=== PATIENT | female | born 1940 | race Caucasian/White ===

== ENCOUNTER 2024-04-03 09:51 | Observation (INO) ==
--- NOTE | 2024-04-03 10:51 | XRay Report ---
XR chest 1V portable CLINICAL HISTORY: weakness TECHNIQUE: Single frontal radiograph of the chest was obtained. Comparison: None available at the time of this dictation. FINDINGS: No lines and tubes are seen. The cardiomediastinal silhouette is normal. Suggestion of interstitial t hickening. No evidence of pleural effusion or pneumothorax. IMPRESSION: No acute chest disease. ACT 112: Negative or not required by law. Electronically signed by: Carter No M.D. 04/03/2024 10:50 AM
[2024-04-03 11:01] LABS: Basophils # (auto) 0.04 K/uL (0.00-0.20); Basophils % (auto) 0.7 %; Eosinophils # (auto) 0.07 K/uL (0.00-0.50); Eosinophils % (auto) 1.2 %; Hematocrit (blood only) 40.4 % (37.0-47.0); Immature Granulocytes # (auto) 0.02 K/uL (0.01-0.20); Immature Granulocytes % (auto) 0.4 %; Lymphocytes # (auto) 0.93 K/uL (1.20-3.40); Lymphocytes % (auto) 16.3 %; Mean Corpuscular Hemoglobin 31.8 pg (25.0-34.0); Mean Corpuscular Hgb Conc 32.2 g/dL (32.0-36.0); Mean Corpuscular Volume 98.8 fL (80.0-100.0); Mean Platelet Volume 11.5 fL (9.4-12.4); Monocytes # (auto) 0.49 K/uL (0.11-0.59); Monocytes % (auto) 8.6 %; Neutrophils # (auto) 4.15 K/uL (1.40-6.50); Neutrophils % (auto) 72.8 %; Platelet Count 195 K/uL (130-400); RDW Coefficient of Variation 13.3 % (11.5-14.5); RDW Standard Deviation 48.5 fL (36.4-46.3); Red Blood Count 4.09 M/uL (4.20-5.40)
[2024-04-03 11:03] LABS: Albumin Level 3.7 gm/dl (3.4-5.0); BUN Creatinine Ratio 28.1 (10-20); Bilirubin,Total 0.8 mg/dl (0.2-1.0); Calcium 9.8 mg/dl (8.6-10.3); Creatinine Clr Calc Pharmacy 25.7 ml/min; Globulin 3.8 gm/dl (2.5-4.0); Magnesium 1.9 mg/dl (1.7-2.4); Potassium 3.9 mmol/L (3.5-5.1); Total Protein 7.5 gm/dl (6.0-8.3)
[2024-04-03 11:09] LABS: Troponin I High Sensitivity 12.5 pg/ml (0-14)
[2024-04-03 11:18] LABS: Thyroid Stimulating Hormone 0.113 uIu/ml (0.300-4.500)
--- NOTE | 2024-04-03 11:48 | Emergency Department Note ---
Impression & Plan Pulmonary embolism, Chest pain, Lightheadedness, Orthostasis ED Provider Note NAME: KILO FIELDS AGE: 83 SEX: Female INFORMANT: Patient and daughter ED PROVIDER(S): Rudolph Neri MD CHIEF COMPLAINT: Weakness and chest pain PLAN: Disposition: Admitted Outpatient prescription management: none Referral: None MEDICAL DECISION MAKING: Patient presented because of an episode of chest pain. She was also found to be orthostatic. ECG did not show any acute ischemia. Patient CBC and chemistry panel was unremarkable. Cardiac troponin was negative. Patient had a drop to 90 systolic with orthostatic testing. Patient underwent CT imaging who was noted to have pulmonary emboli. Heparinization was ordered. Discussed this with patient and daughter. She will need further management in the hospital. Consultation was made with Dr. Melecio Ortiz of the [facility] service. Patient was evaluated in the ER for further management. Care/management discussed with: manager graphic Level of care consideration(s): After review of the information above and other included data, I feel the patient requires escalation of care to admission Triage Nursing notes: reviewed and agree them. Vital Signs: reviewed and remarkable for orthostasis Additional History obtained from: Patient's daughter Chronic Medical/Social Conditions affecting care: Hypertension Prior/ Outside/ External records reviewed: none Differential Diagnosis: Infection, dehydration, metabolic abnormality, hypo/hyperglycemia, electrolyte disturbance, anemia, hypoxia, cardiac sources, intracerebral event, toxicologic, neurologic, as well as other pathologies. Diagnostics, independently interpreted by me: ECG: Twelve-lead ECG reveals sinus rhythm with PACs and left axis deviation at [address] elevation or depression. No T WI. Possible anterior infarct. Cardiac Monitoring: Cardiac monitoring ordered by me: The patient was placed on continuous cardiac monitoring and observed. It revealed a sinus rhythm at 97 beats per minute without ectopy or evidence of dysrhythmia. Medical decision rules: none Imaging studies: Chest x-ray. Findings: A chest x-ray was performed and revealed no pneumothorax, effusion, infiltrate, pulmonary edema, free air under the diaphragm, or wide mediastinum. Impression: No acute disease. HPI: 83 year old Female arrives for evaluation of chest pain weakness. This started yesterday. Patient notes her current pain is 0. She notes about 5 to 10 minutes of substernal chest pain that occurred at rest yesterday. She noted feeling weak. That has progressed today. She describes it as generalized weakness. Patient notes that she has had lightheadedness recently that seems to be mostly with changing position. She denies any room spinning. She did note some decreased hearing in the right ear. She does note she has had some decreased p.o. intake recently. Pt denies LOC, headache, fevers, chills, diaphoresis, visual changes, neck pain, breathing difficulties, nausea, vomiting, abdominal pain, back pain, melena, hematochezia, urinary symptoms, numbness, focal weakness, lymphadenopathy, rash, or other complaints. PAST MEDICAL HISTORY: See Below, denies cardiac history. Hypertension. PAST SURGICAL HISTORY: See Below, SOCIAL HISTORY: See Below, retired HOME MEDICATIONS: See Below ALLERGIES: See Below VITALS: See Below PHYSICAL EXAMINATION: GENERAL: Awake, alert, [id number], in no distress HENT: Normocephalic, atraumatic. Oropharynx unremarkable. EYES: Normal conjunctiva. Sclera non-icteric. NECK: Inspection normal. Non-tender. Supple. No nuchal rigidity. FROM. No masses. RESPIRATORY: Clear to auscultation. No wheezes. No rales. Normal respiratory effort. CARDIAC: Borderline tachycardic rate. Normal rhythm. No murmurs. No rubs. Extremities warm and well perfused. Pulses equal. No JVD. GI: Soft, non-distended. No tenderness to palpation. No rebound or guarding. No masses. RECTAL: Deferred. MUSCULOSKELETAL: Atraumatic. Chest examination reveals no tenderness. The back is symmetrical on inspection without obvious abnormality. There is no CVA tenderness to palpation. No joint edema. LOWER EXTREMITIES: Calves are equal size bilaterally and non-tender. No edema. No discoloration. NEURO: Normal sensorium. No sensory or motor deficits noted. SKIN: No rash or jaundice noted. PROCEDURES: none CRITICAL CARE: I have personally spent 35 minutes of critical care time in the direct management of this patient. This includes bedside care, interpretation of diagnostic studies, and testing, discussion with consultants, patient, and family members, and other required patient management activities. These minutes are in excess of all separately billable procedures. OBSERVATION NOTE: none Past Med/Surg History Problem List (Updated 04/03/24 @ 16:21 by Rudolph Neri MD) Orthostasis (Acute) Pulmonary embolism (Acute) Lightheadedness (Acute) Chest pain (Acute) Anxiety Medical History Age related osteoporosis Anxiety Moriah's disease History of diverticulosis History of esophagitis History of gastritis History of IBS History of kidney stones History of sinus problem chronic post nasal drip/ongoing problem/no change in baseline. scratchy throat off and on/no change in baseline. History of skin cancer removed x2. HTN (hypertension) Neuropathy feet & fingertips Sjogren's disease Surgical History History of appendectomy History of cataract surgery left History of colonoscopy History of endoscopy History of foot surgery both History of lithotripsy unclear details on procedure for kidney stone: "crushed" - pt reports thinks she was awake for this. History of nasal surgery nasal polyps off and cyst off of cheek ( all 1 procedure) History of surgery gynecological related / "pelvic lift" History of tonsillectomy Social History Smoking Status: Former smoker Tobacco Type: Cigarettes Second Hand Exposure: No; Do You Dip or Chew Tobacco: No; Hx Alcohol Use: Yes Alcohol type: wine Hx Substance Use: No Preferred Language: French Communication Ability: Effective Deburring Technician Required: No Beliefs That Will Affect Care: None Current Living Situation: Family Feels Safe at Home: Yes Assistive Devices: Glasses Allergies Allergies Allergy/AdvReac Type Severity Reaction Status Date / Time No Known Allergies Allergy Verified 04/03/24 15:31 Home Meds Home Medications Medication Instructions Recorded Confirmed amlodipine 2.5 mg tablet 2.5 mg PO QAM 02/26/23 04/03/24 citalopram 20 mg tablet 20 mg PO QAM 02/26/23 04/03/24 cyanocobalamin (vitamin B-12) 1,000 mcg PO QAM 02/26/23 04/03/24 1,000 mcg tablet (Vitamin B-12) levothyroxine 75 mcg tablet 75 mcg PO QAM 02/26/23 04/03/24 lorazepam 0.5 mg tablet 0.5 mg PO HS PRN Anxiety 02/26/23 04/03/24 metoprolol succinate 25 mg 25 mg PO QAM 02/26/23 04/03/24 tablet,extended release 24 hr buspirone 10 mg tablet 10 mg PO BID 04/03/24 04/03/24 Results & Data (ED) Vital Signs Vital Signs - 24 hr 04/03/24 10:02 04/03/24 10:02 04/03/24 10:02 Temperature 36.5 C 36.5 C Temperature Source Oral Oral Pulse Rate - Lying Pulse Rate - Sitting Pulse Rate - Standing Pulse Rate 104 H Pulse Rate [Apical] 100 H Pulse Rate from SpO2 Sensor Pulse Rhythm Respiratory Rate 23 21 Blood Pressure - Lying Blood Pressure - Sitting Blood Pressure- Standing Blood Pressure 114/83 Blood Pressure [Right Arm] 114/83 Blood Pressure Mean 93 Blood Pressure Mean [Right Arm] 93 Blood Pressure Position Semi-fowlers Blood Pressure Position [Right Arm] Semi-fowlers Pulse Oximetry 98 97 97 Oxygen Delivery Method Room Air Room Air Room Air Oxygen Flow Rate 0 Sepsis Recent Fever Within 48 Hours No Sepsis New/Unexplained Change in Mental Status N/A Sepsis Action Taken by Nursing Physician Notified 04/03/24 10:02 04/03/24 10:12 04/03/24 10:16 Temperature Temperature Source Pulse Rate - Lying Pulse Rate - Sitting Pulse Rate - Standing Pulse Rate 98 H 98 H Pulse Rate [Apical] Pulse Rate from SpO2 Sensor 99 H Pulse Rhythm Respiratory Rate 35 H Blood Pressure - Lying Blood Pressure - Sitting Blood Pressure- Standing Blood Pressure 114/83 Blood Pressure [Right Arm] Blood Pressure Mean 90 Blood Pressure Mean [Right Arm] Blood Pressure Position Blood Pressure Position [Right Arm] Pulse Oximetry 96 Oxygen Delivery Method Oxygen Flow Rate Sepsis Recent Fever Within 48 Hours Sepsis New/Unexplained Change in Mental Status Sepsis Action Taken by Nursing 04/03/24 10:21 04/03/24 10:30 04/03/24 10:30 Temperature Temperature Source Pulse Rate - Lying Pulse Rate - Sitting Pulse Rate - Standing Pulse Rate 96 H 99 H Pulse Rate [Apical] Pulse Rate from SpO2 Sensor 99 H Pulse Rhythm Respiratory Rate 33 H 30 H Blood Pressure - Lying Blood Pressure - Sitting Blood Pressure- Standing Blood Pressure 104/69 Blood Pressure [Right Arm] Blood Pressure Mean 88 Blood Pressure Mean [Right Arm] Blood Pressure Position Blood Pressure Position [Right Arm] Pulse Oximetry 92 Oxygen Delivery Method Oxygen Flow Rate Sepsis Recent Fever Within 48 Hours Sepsis New/Unexplained Change in Mental Status Sepsis Action Taken by Nursing 04/03/24 10:30 04/03/24 10:36 04/03/24 10:42 Temperature Temperature Source Pulse Rate - Lying Pulse Rate - Sitting Pulse Rate - Standing Pulse Rate 100 H 100 H Pulse Rate [Apical] Pulse Rate from SpO2 Sensor 100 H Pulse Rhythm Regular Respiratory Rate 14 22 Blood Pressure - Lying Blood Pressure - Sitting Blood Pressure- Standing Blood Pressure 104/69 Blood Pressure [Right Arm] Blood Pressure Mean 88 Blood Pressure Mean [Right Arm] Blood Pressure Position Blood Pressure Position [Right Arm] Pulse Oximetry 92 93 Oxygen Delivery Method Room Air Oxygen Flow Rate Sepsis Recent Fever Within 48 Hours Sepsis New/Unexplained Change in Mental Status Sepsis Action Taken by Nursing 04/03/24 10:48 04/03/24 11:00 04/03/24 11:01 Temperature Temperature Source Pulse Rate - Lying 93 H Pulse Rate - Sitting 94 H Pulse Rate - Standing 100 H Pulse Rate 95 H Pulse Rate [Apical] Pulse Rate from SpO2 Sensor 98 H Pulse Rhythm Respiratory Rate 13 Blood Pressure - Lying 114/75 Blood Pressure - Sitting 93/70 L Blood Pressure- Standing 90/64 L Blood Pressure 93/70 L Blood Pressure [Right Arm] Blood Pressure Mean 77 Blood Pressure Mean [Right Arm] Blood Pressure Position Blood Pressure Position [Right Arm] Pulse Oximetry 89 L Oxygen Delivery Method Oxygen Flow Rate Sepsis Recent Fever Within 48 Hours Sepsis New/Unexplained Change in Mental Status Sepsis Action Taken by Nursing 04/03/24 11:01 04/03/24 11:01 04/03/24 11:03 Temperature Temperature Source Pulse Rate - Lying Pulse Rate - Sitting Pulse Rate - Standing Pulse Rate 100 H Pulse Rate [Apical] Pulse Rate from SpO2 Sensor 93 H Pulse Rhythm Respiratory Rate 29 H Blood Pressure - Lying Blood Pressure - Sitting Blood Pressure- Standing Blood Pressure 114/75 93/70 L Blood Pressure [Right Arm] Blood Pressure Mean 89 77 Blood Pressure Mean [Right Arm] Blood Pressure Position Blood Pressure Position [Right Arm] Pulse Oximetry 84 L Oxygen Delivery Method Oxygen Flow Rate Sepsis Recent Fever Within 48 Hours Sepsis New/Unexplained Change in Mental Status Sepsis Action Taken by Nursing 04/03/24 11:03 04/03/24 11:12 04/03/24 11:27 Temperature Temperature Source Pulse Rate - Lying Pulse Rate - Sitting Pulse Rate - Standing Pulse Rate 94 H 89 Pulse Rate [Apical] Pulse Rate from SpO2 Sensor 96 H 89 Pulse Rhythm Respiratory Rate 40 H 32 H Blood Pressure - Lying Blood Pressure - Sitting Blood Pressure- Standing Blood Pressure 90/64 L Blood Pressure [Right Arm] Blood Pressure Mean 70 Blood Pressure Mean [Right Arm] Blood Pressure Position Blood Pressure Position [Right Arm] Pulse Oximetry 93 95 Oxygen Delivery Method Oxygen Flow Rate Sepsis Recent Fever Within 48 Hours Sepsis New/Unexplained Change in Mental Status Sepsis Action Taken by Nursing 04/03/24 11:30 04/03/24 11:30 04/03/24 11:45 Temperature Temperature Source Pulse Rate - Lying Pulse Rate - Sitting Pulse Rate - Standing Pulse Rate 86 Pulse Rate [Apical] Pulse Rate from SpO2 Sensor 86 Pulse Rhythm Respiratory Rate 22 Blood Pressure - Lying Blood Pressure - Sitting Blood Pressure- Standing Blood Pressure 131/73 131/73 Blood Pressure [Right Arm] Blood Pressure Mean 96 96 Blood Pressure Mean [Right Arm] Blood Pressure Position Blood Pressure Position [Right Arm] Pulse Oximetry 93 Oxygen Delivery Method Oxygen Flow Rate Sepsis Recent Fever Within 48 Hours Sepsis New/Unexplained Change in Mental Status Sepsis Action Taken by Nursing 04/03/24 11:51 04/03/24 12:00 04/03/24 12:00 Temperature Temperature Source Pulse Rate - Lying Pulse Rate - Sitting Pulse Rate - Standing Pulse Rate 86 Pulse Rate [Apical] Pulse Rate from SpO2 Sensor 86 Pulse Rhythm Respiratory Rate 25 H Blood Pressure - Lying Blood Pressure - Sitting Blood Pressure- Standing Blood Pressure 125/83 125/83 Blood Pressure [Right Arm] Blood Pressure Mean 98 98 Blood Pressure Mean [Right Arm] Blood Pressure Position Blood Pressure Position [Right Arm] Pulse Oximetry 96 Oxygen Delivery Method Oxygen Flow Rate Sepsis Recent Fever Within 48 Hours Sepsis New/Unexplained Change in Mental Status Sepsis Action Taken by Nursing 04/03/24 12:12 04/03/24 12:30 04/03/24 12:30 Temperature Temperature Source Pulse Rate - Lying Pulse Rate - Sitting Pulse Rate - Standing Pulse Rate 88 Pulse Rate [Apical] Pulse Rate from SpO2 Sensor 87 Pulse Rhythm Respiratory Rate 26 H Blood Pressure - Lying Blood Pressure - Sitting Blood Pressure- Standing Blood Pressure 141/81 H 141/81 H Blood Pressure [Right Arm] Blood Pressure Mean 100 100 Blood Pressure Mean [Right Arm] Blood Pressure Position Blood Pressure Position [Right Arm] Pulse Oximetry 95 Oxygen Delivery Method Oxygen Flow Rate Sepsis Recent Fever Within 48 Hours Sepsis New/Unexplained Change in Mental Status Sepsis Action Taken by Nursing 04/03/24 12:30 04/03/24 12:30 04/03/24 12:48 Temperature Temperature Source Pulse Rate - Lying Pulse Rate - Sitting Pulse Rate - Standing Pulse Rate 91 H Pulse Rate [Apical] Pulse Rate from SpO2 Sensor 91 H Pulse Rhythm Respiratory Rate 25 H Blood Pressure - Lying Blood Pressure - Sitting Blood Pressure- Standing Blood Pressure 141/81 H 141/81 H Blood Pressure [Right Arm] Blood Pressure Mean 100 100 Blood Pressure Mean [Right Arm] Blood Pressure Position Blood Pressure Position [Right Arm] Pulse Oximetry 97 Oxygen Delivery Method Oxygen Flow Rate Sepsis Recent Fever Within 48 Hours Sepsis New/Unexplained Change in Mental Status Sepsis Action Taken by Nursing 04/03/24 12:54 04/03/24 13:00 04/03/24 13:00 Temperature Temperature Source Pulse Rate - Lying Pulse Rate - Sitting Pulse Rate - Standing Pulse Rate 91 H Pulse Rate [Apical] Pulse Rate from SpO2 Sensor 90 Pulse Rhythm Respiratory Rate 24 Blood Pressure - Lying Blood Pressure - Sitting Blood Pressure- Standing Blood Pressure 114/75 114/75 Blood Pressure [Right Arm] Blood Pressure Mean 97 97 Blood Pressure Mean [Right Arm] Blood Pressure Position Blood Pressure Position [Right Arm] Pulse Oximetry 96 Oxygen Delivery Method Oxygen Flow Rate Sepsis Recent Fever Within 48 Hours Sepsis New/Unexplained Change in Mental Status Sepsis Action Taken by Nursing 04/03/24 13:00 04/03/24 13:03 04/03/24 13:24 Temperature Temperature Source Pulse Rate - Lying Pulse Rate - Sitting Pulse Rate - Standing Pulse Rate 85 80 Pulse Rate [Apical] Pulse Rate from SpO2 Sensor 85 80 Pulse Rhythm Respiratory Rate 24 26 H Blood Pressure - Lying Blood Pressure - Sitting Blood Pressure- Standing Blood Pressure 114/75 Blood Pressure [Right Arm] Blood Pressure Mean 97 Blood Pressure Mean [Right Arm] Blood Pressure Position Blood Pressure Position [Right Arm] Pulse Oximetry 96 91 Oxygen Delivery Method Oxygen Flow Rate Sepsis Recent Fever Within 48 Hours Sepsis New/Unexplained Change in Mental Status Sepsis Action Taken by Nursing 04/03/24 13:30 04/03/24 13:33 04/03/24 13:54 Temperature Temperature Source Pulse Rate - Lying Pulse Rate - Sitting Pulse Rate - Standing Pulse Rate 85 87 Pulse Rate [Apical] Pulse Rate from SpO2 Sensor 86 87 Pulse Rhythm Respiratory Rate 29 H 26 H Blood Pressure - Lying Blood Pressure - Sitting Blood Pressure- Standing Blood Pressure 124/72 Blood Pressure [Right Arm] Blood Pressure Mean 84 Blood Pressure Mean [Right Arm] Blood Pressure Position Blood Pressure Position [Right Arm] Pulse Oximetry 92 94 Oxygen Delivery Method Oxygen Flow Rate Sepsis Recent Fever Within 48 Hours Sepsis New/Unexplained Change in Mental Status Sepsis Action Taken by Nursing 04/03/24 14:12 04/03/24 14:17 04/03/24 14:21 Temperature Temperature Source Pulse Rate - Lying Pulse Rate - Sitting Pulse Rate - Standing Pulse Rate 83 80 80 Pulse Rate [Apical] Pulse Rate from SpO2 Sensor 84 80 Pulse Rhythm Respiratory Rate 28 H 25 H Blood Pressure - Lying Blood Pressure - Sitting Blood Pressure- Standing Blood Pressure Blood Pressure [Right Arm] Blood Pressure Mean Blood Pressure Mean [Right Arm] Blood Pressure Position Blood Pressure Position [Right Arm] Pulse Oximetry 94 94 Oxygen Delivery Method Oxygen Flow Rate Sepsis Recent Fever Within 48 Hours Sepsis New/Unexplained Change in Mental Status Sepsis Action Taken by Nursing 04/03/24 14:30 04/03/24 14:30 04/03/24 14:33 Temperature Temperature Source Pulse Rate - Lying Pulse Rate - Sitting Pulse Rate - Standing Pulse Rate 79 Pulse Rate [Apical] Pulse Rate from SpO2 Sensor 79 Pulse Rhythm Respiratory Rate 27 H Blood Pressure - Lying Blood Pressure - Sitting Blood Pressure- Standing Blood Pressure 127/79 127/79 Blood Pressure [Right Arm] Blood Pressure Mean 99 99 Blood Pressure Mean [Right Arm] Blood Pressure Position Blood Pressure Position [Right Arm] Pulse Oximetry 94 Oxygen Delivery Method Oxygen Flow Rate Sepsis Recent Fever Within 48 Hours Sepsis New/Unexplained Change in Mental Status Sepsis Action Taken by Nursing 04/03/24 14:42 04/03/24 14:54 04/03/24 14:57 Temperature Temperature Source Pulse Rate - Lying Pulse Rate - Sitting Pulse Rate - Standing Pulse Rate 71 73 74 Pulse Rate [Apical] Pulse Rate from SpO2 Sensor 71 74 74 Pulse Rhythm Respiratory Rate 22 26 H 25 H Blood Pressure - Lying Blood Pressure - Sitting Blood Pressure- Standing Blood Pressure Blood Pressure [Right Arm] Blood Pressure Mean Blood Pressure Mean [Right Arm] Blood Pressure Position Blood Pressure Position [Right Arm] Pulse Oximetry 93 92 91 Oxygen Delivery Method Oxygen Flow Rate Sepsis Recent Fever Within 48 Hours Sepsis New/Unexplained Change in Mental Status Sepsis Action Taken by Nursing 04/03/24 15:00 04/03/24 15:00 Temperature Temperature Source Pulse Rate - Lying Pulse Rate - Sitting Pulse Rate - Standing Pulse Rate Pulse Rate [Apical] Pulse Rate from SpO2 Sensor Pulse Rhythm Respiratory Rate Blood Pressure - Lying Blood Pressure - Sitting Blood Pressure- Standing Blood Pressure 131/75 131/75 Blood Pressure [Right Arm] Blood Pressure Mean 99 99 Blood Pressure Mean [Right Arm] Blood Pressure Position Blood Pressure Position [Right Arm] Pulse Oximetry Oxygen Delivery Method Oxygen Flow Rate Sepsis Recent Fever Within 48 Hours Sepsis New/Unexplained Change in Mental Status Sepsis Action Taken by Nursing Laboratory Data 04/03/24 10:25 04/03/24 10:25 Lab Results 04/03/24 04/03/24 Range/Units 10: 12:51 WBC 5.70 (4.8-10.8) K/ul RBC 4.09 L (4.20-5.40) M/uL Hgb 13.0 (12.0-16.0) g/dl Hct 40.4 (37.0-47.0) % MCV 98.8 (80.0-100.0) fL MCH 31.8 (25.0-34.0) pg MCHC 32.2 (32.0-36.0) g/dL RDW Std Deviation 48.5 H (36.4-46.3) fL RDW Coeff of Luis Carlos 13.3 (11.5-14.5) % Plt Count 195 (130-400) K/uL MPV 11.5 (9.4-12.4) fL Immature Gran % (Auto) 0.4 % Neut % (Auto) 72.8 % Lymph % (Auto) 16.3 % Emery % (Auto) 8.6 % Eos % (Auto) 1.2 % Baso % (Auto) 0.7 % Neut # (Auto) 4.15 (1.40-6.50) K/uL Lymph # (Auto) 0.93 L (1.20-3.40) K/uL Emery # (Auto) 0.49 (0.11-0.59) K/uL Eos # (Auto) 0.07 (0.00-0.50) K/uL Baso # (Auto) 0.04 (0.00-0.20) K/uL Immature Gran # (Auto) 0.02 (0.01-0.20) K/uL PT 11.5 (9.0-12.0) Seconds INR 1.1 (0.9-1.1) APTT 26 (21-31) Seconds PTT Ratio 1.0 Sodium 142 (136-145) mmol/L Potassium 3.9 (3.5-5.1) mmol/L Chloride 107 (98-107) mmol/L Carbon Dioxide 28 (21-32) mmol/L Anion Gap 7 (3-11) BUN 32 H (6-23) mg/dl Creatinine 1.14 (0.6-1.2) mg/dl Est Cr Clr Drug Dosing 25.7 ml/min eGFR 47.47 BUN/Creatinine Ratio 28.1 H (10-20) Glucose 118 H (70-99(Fasting)) mg/dl Calcium 9.8 (8.6-10.3) mg/dl Magnesium 1.9 (1.7-2.4) mg/dl Total Bilirubin 0.8 (0.2-1.0) mg/dl AST 19 (13-39) U/L ALT 14 (7-52) U/L Alkaline Phosphatase 86 (34-104) U/L Troponin I High Sens 12.5 10.5 (0-14) pg/ml Total Protein 7.5 (6.0-8.3) gm/dl Albumin 3.7 (3.4-5.0) gm/dl Globulin 3.8 (2.5-4.0) gm/dl Albumin/Globulin Ratio 1.0 (0.9-2) TSH 0.113 L (0.300-4.500) uIu/ml Free T4 2.01 H (0.61-1.60) ng/dl Administered Medications Heparin Sodium/Dextrose (Heparin Sodium/Dextrose) 25,000 units in 500 mls @ 11 mls/hr IV .Q24H [facility]; Protocol Stop: 05/03/24 13:44 Last Admin: 04/03/24 13:46 Dose: 550 units/hr, 11 mls/hr Documented By: MALLORIE Co-signed By: HAYLEY Discontinued Medications Heparin Sodium (Porcine) (Heparin Sod (Porcine) 1000 Unit/Ml) 3,000 units IV NOW STA Stop: 04/03/24 13:33 Last Admin: 04/03/24 13:46 Dose: 3,000 units Documented By: ARS Co-signed By: HAYLEY Ioversol (Optiray 320 125ml) 112 ml IV ONCE ONE Stop: 04/03/24 12:36 Last Admin: 04/03/24 12:36 Dose: 112 ml Documented By: PROMISE Imaging Data Radiologist's Impression: Chest X-Ray 04/03/24 10:28 XR chest 1V portable CLINICAL HISTORY: weakness TECHNIQUE: Single frontal radiograph of the chest was obtained. Comparison: None available at the time of this dictation. FINDINGS: No lines and tubes are seen. The cardiomediastinal silhouette is normal. Suggestion of interstitial thickening. No evidence of pleural effusion or pneumothorax. IMPRESSION: No acute chest disease. ACT 112: Negative or not required by law. Electronically signed by: Carter No M.D. 04/03/2024 10:50 AM Chest CTA 04/03/24 12:21 CT ANGIOGRAPHY OF THE CHEST, PULMONARY EMBOLUS PROTOCOL CLINICAL HISTORY: Chest pain. Hypotension. COMPARISON STUDY: Chest radiograph performed earlier today. TECHNIQUE: Following IV administration of 112 mL of Optiray, helical axial images of the chest were obtained utilizing the pulmonary embolus protocol. Maximal intensity projections and sagittal and coronal reformats were viewed on an independent 3D workstation. IV contrast was administered without complication. Automated exposure control was utilized for the study. A dose lowering technique was utilized adhering to the principles of ALARA. CT DOSE: 256.37 mGy.cm FINDINGS: There are several small subsegmental pulmonary emboli within the right lung. These include an embolus within the right middle lobe on image 74 of [id number] and a right lower lobe embolus on image 68 of 223. No central pulmonary emboli are identified. The heart is mildly enlarged. There is no pericardial effusion. There is slight dilatation of the ascending aorta. No pneumothorax or pleural effusion is present. There is no consolidation. Subpleural densities favor scarring. Multiple small pulmonary nodules measure up to 5 mm. There are subpleural groundglass opacities within the lungs with a few scattered tree-in-bud nodules. Exaggerated kyphosis centered at the lower thoracic spine is incidentally noted. IMPRESSION: 1. Several subsegmental pulmonary emboli within the right lung. 2. No pulmonary infarct. 3. Multiple small pulmonary nodules measuring up to 5 mm. These are likely benign. A chest CT in 6 months to ensure stability is recommended. 4. Subpleural densities which favor scarring. Scattered nonspecific groundglass opacities within the lungs. No consolidation. ACT 112: Negative or not required by law. Electronically signed by: Ibrahima Kaiser M.D. 04/03/2024 1:12 PM Discharge Plan Visit Data Chief Complaint: Weakness Stated Complaint: WEAKNESS, DIZZY, LIGHTHEADED ED Provider: Rudolph Neri Discharge Problem: Pulmonary embolism, Chest pain, Lightheadedness, Orthostasis Prescriptions Prescriptions: No Action cyanocobalamin (vitamin B-12) [Vitamin B-12] 1,000 mcg Tablet 1,000 mcg PO QAM amlodipine 2.5 mg Tablet 2.5 mg PO QAM levothyroxine 75 mcg Tablet 75 mcg PO QAM citalopram 20 mg Tablet 20 mg PO QAM lorazepam 0.5 mg Tablet 0.5 mg PO HS PRN (Reason: Anxiety) metoprolol succinate 25 mg Tablet Extended Release 24 Hr 25 mg PO QAM buspirone 10 mg tablet 10 mg PO BID
[2024-04-03 12:05] LABS: T4 Free Thyroxine 2.01 ng/dl (0.61-1.60)
[2024-04-03] MEDS: OPTIRAY 320 125ml IV ONE (12:36)
--- NOTE | 2024-04-03 13:13 | CT Scan Report ---
CT ANGIOGRAPHY OF THE CHEST, PULMONARY EMBOLUS PROTOCOL CLINICAL HISTORY: Chest pain. Hypotension. COMPARISON STUDY: Chest radiograph performed earlier today. TECHNIQUE: Following IV administration of 112 mL of Optiray, helical axial images of the chest were o btained utilizing the pulmonary embolus protocol. Maximal intensity projections and sagittal and cor onal reformats were viewed on an independent 3D workstation. IV contrast was administered without co mplication. Automated exposure control was utilized for the study. A dose lowering technique was ut ilized adhering to the principles of ALARA. CT DOSE: 256.37 mGy.cm FINDINGS: There are several small subsegmental pulmonary emboli within the right lung. These include an embolus within the right middle lobe on image 74 of 223 and a right lower lobe embolus on image 6 8 of 223. No central pulmonary emboli are identified. The heart is mildly enlarged. There is no peric ardial effusion. There is slight dilatation of the ascending aorta. No pneumothorax or pleural effusi on is present. There is no consolidation. Subpleural densities favor scarring. Multiple small pulmona ry nodules measure up to 5 mm. There are subpleural groundglass opacities within the lungs with a few scattered tree-in-bud nodules. Exaggerated kyphosis centered at the lower thoracic spine is incident ally noted. IMPRESSION: 1. Several subsegmental pulmonary emboli within the right lung. 2. No pulmonary infarct. 3. Multiple small pulmonary nodules measuring up to 5 mm. These are likely benign. A chest CT in 6 mo nths to ensure stability is recommended. 4. Subpleural densities which favor scarring. Scattered nonspecific groundglass opacities within the lungs. No consolidation. ACT 112: Negative or not required by law. Electronically signed by: Ibrahima Kaiser M.D. 04/03/2024 1:12 PM
[2024-04-03] MEDS ORDERED: Heparin IV Adult Wt-Based Low-Dose w/ INITIAL Bolus Protocol IV STA (13:27)
[2024-04-03] MEDS ORDERED: HEPARIN SOD (PORCINE) 1000 UNIT/ML IV ONE (13:43)
[2024-04-03] MEDS: HEPARIN SOD (PORCINE) 1000 UNIT/ML IV STA (13:46)
[2024-04-03] MEDS: HEPARIN SODIUM/DEXTROSE 25,000 UNITS/500 ML BAG IV SCH (13:46)
--- NOTE | 2024-04-03 14:04 | History & Physical Report ---
Date of Service April 03, 2024 Assessment & Plan (1) Pulmonary embolism: Plan: IV heparin bolus and drip (2) Orthostasis: Plan: Secondary to anti-hypertensives in setting of pulmonary embolism Stop all anti-hypertensives, given weight loss possibly even without PEs she no longer needs these Monitor for improvement (3) Hypothyroidism: Plan: TSH low, free T4 high Suspect over tretment of hypothyroidism in setting of weight loss Reduce levothyroxine to 50 mcg PO daily and follow up as outpatient (4) Unintentional weight loss: Plan: Given pulmonary embolism and unintentional weight loss will get CT A/P with IV and oral contrast to assess for metastatic disease Plan Anxiety - continue buspirone and citalopram VTE Prophylaxis - IV heparin Diet - gluten free Disposition - observation to med/tele (2 midnight stay) Admission and Anticipated Discharge Date Admission Date: April 03, 2024 History of Present Illness Chief Complaint: Presyncope Primary Care Provider: Avery Villarreal MD Lisa Sage is an 83 year old female who presents to the ER with with generalized weakness and lightheadedness. She is unclear on timeline but feels it has been much worse over the last 2 days, possibly intermittent for the last month with presyncope on standing up with associated palpitations (heart pounding). No syncopal events. Overall she just doesn't feel well. No shortness of breath, chest pain, claudication. No fever, chills, headache, unilateral weakness, respiratory, gastrointestinal or urinary symptoms. She also notes 20lb unintentional weight loss which she has not seen her PCP about and again is unclear over what time period. She denies decreased appetits, odynophagia or dysphagia. Allergies Allergy/AdvReac Type Severity Reaction Status Date / Time No Known Allergies Allergy Verified 04/03/24 15:31 Home Medications Medication Instructions Recorded Confirmed Type amlodipine 2.5 mg tablet 2.5 mg PO QAM 02/26/23 04/03/24 History citalopram 20 mg tablet 20 mg PO QAM 02/26/23 04/03/24 History cyanocobalamin (vitamin B-12) 1,000 mcg PO QAM 02/26/23 04/03/24 History 1,000 mcg tablet (Vitamin B-12) levothyroxine 75 mcg tablet 75 mcg PO QAM 02/26/23 04/03/24 History lorazepam 0.5 mg tablet 0.5 mg PO HS PRN Anxiety 02/26/23 04/03/24 History metoprolol succinate 25 mg 25 mg PO QAM 02/26/23 04/03/24 History tablet,extended release 24 hr buspirone 10 mg tablet 10 mg PO BID 04/03/24 04/03/24 History Past Med/Surg History Problem List (Updated 04/04/24 @ 06:10 by Melecio Ortiz MD) Unintentional weight loss Hypothyroidism Orthostasis (Acute) Pulmonary embolism (Acute) Lightheadedness (Acute) Chest pain (Acute) Anxiety Medical History Age related osteoporosis Anxiety Moriah's disease History of diverticulosis History of esophagitis History of gastritis History of IBS History of kidney stones History of sinus problem chronic post nasal drip/ongoing problem/no change in baseline. scratchy throat off and on/no change in baseline. History of skin cancer removed x2. HTN (hypertension) Neuropathy feet & fingertips Sjogren's disease Surgical History History of appendectomy History of cataract surgery left History of colonoscopy History of endoscopy History of foot surgery both History of lithotripsy unclear details on procedure for kidney stone: "crushed" - pt reports thinks she was awake for this. History of nasal surgery nasal polyps off and cyst off of cheek ( all 1 procedure) History of surgery gynecological related / "pelvic lift" History of tonsillectomy Social History Smoking Status: Never smoker Tobacco Type: Cigarettes Second Hand Exposure: No; Do You Dip or Chew Tobacco: No; Tobacco Cessation Education Requested by Patient: No Hx Alcohol Use: Yes Alcohol type: wine Hx Substance Use: No Preferred Language: Mauritian Communication Ability: Effective Camera Maker Required: No Beliefs That Will Affect Care: None Current Living Situation: Alone Other Information That Helps Us Care for You: No Feels Safe at Home: Yes Safety Concerns: Feels Safe At This Time Assistive Devices: Denture - Upper Review of Systems Review of Systems: All systems reviewed & are unremarkable except as noted in HPI & below Physical Exam Constitutional: well developed and + thin; no acute distress Eyes: PERRL, conjunctivae normal, anicteric sclerae ENMT: Mouth: + dry oral mucous membranes Respiratory: normal respiratory effort, lungs clear to auscultation Cardiovascular: RRR, no murmur, no edema Gastrointestinal (Abdomen): normal bowel sounds, soft, nontender, no hepatosplenomegaly Musculoskeletal: no cyanosis or clubbing, extremities motor strength 5/5 Skin: no rashes, warm and dry Neurologic: moves all extremities and awake; not confused Psychiatric: A+Ox3, euthymic affect Genitourinary: no CVA tenderness Results & Data Results & Data Vital Signs (Past 12 Hours) Vital Signs Temp Pulse Pulse Resp BP BP Pulse Ox 04/03/24 10:36 100 H 14 92 04/03/24 10:16 98 H 04/03/24 10:02 36.5 C 100 H 21 114/83 97 04/03/24 10:02 97 04/03/24 10:02 36.5 C 104 H 23 114/83 98 O2 Del Method O2 Flow Rate 04/03/24 10:36 Room Air 04/03/24 10:16 04/03/24 10:02 Room Air 04/03/24 10:02 Room Air 0 04/03/24 10:02 Room Air Laboratory Results Abnormal lab results 04/03/24 Range/Units 10:25 RBC 4.09 L (4.20-5.40) M/uL RDW Std Deviation 48.5 H (36.4-46.3) fL Lymph # (Auto) 0.93 L (1.20-3.40) K/uL BUN 32 H (6-23) mg/dl BUN/Creatinine Ratio 28.1 H (10-20) Glucose 118 H (70-99(Fasting)) mg/dl TSH 0.113 L (0.300-4.500) uIu/ml Free T4 2.01 H (0.61-1.60) ng/dl Diagnostic Findings XR chest 1V portable CLINICAL HISTORY: weakness TECHNIQUE: Single frontal radiograph of the chest was obtained. Comparison: None available at the time of this dictation. FINDINGS: No lines and tubes are seen. The cardiomediastinal silhouette is normal. Suggestion of interstitial thickening. No evidence of pleural effusion or pneumothorax. IMPRESSION: No acute chest disease. CT ANGIOGRAPHY OF THE CHEST, PULMONARY EMBOLUS PROTOCOL CLINICAL HISTORY: Chest pain. Hypotension. COMPARISON STUDY: Chest radiograph performed earlier today. TECHNIQUE: Following IV administration of 112 mL of Optiray, helical axial images of the chest were obtained utilizing the pulmonary embolus protocol. Maximal intensity projections and sagittal and coronal reformats were viewed on an independent 3D workstation. IV contrast was administered without complication. Automated exposure control was utilized for the study. A dose lowering technique was utilized adhering to the principles of ALARA. CT DOSE: 256.37 mGy.cm FINDINGS: There are several small subsegmental pulmonary emboli within the right lung. These include an embolus within the right middle lobe on image 74 of 223 and a right lower lobe embolus on image 68 of 223. No central pulmonary emboli are identified. The heart is mildly enlarged. There is no pericardial effusion. There is slight dilatation of the ascending aorta. No pneumothorax or pleural effusion is present. There is no consolidation. Subpleural densities favor scarring. Multiple small pulmonary nodules measure up to 5 mm. There are subpleural groundglass opacities within the lungs with a few scattered tree-in-bud nodules. Exaggerated kyphosis centered at the lower thoracic spine is incidentally noted. IMPRESSION: 1. Several subsegmental pulmonary emboli within the right lung. 2. No pulmonary infarct. 3. Multiple small pulmonary nodules measuring up to 5 mm. These are likely benign. A chest CT in 6 months to ensure stability is recommended. 4. Subpleural densities which favor scarring. Scattered nonspecific groundglass opacities within the lungs. No consolidation. Medications Administered ER medications given: Heparin low-dose bolus and drip ECG Rate (beats per minute): 98 Rhythm: normal sinus Findings: + PAC Comparison ECG Date: no prior available Code Status & VTE Plan Code Status All treatment outside of a cardiac arrest VTE Prophylaxis Plan VTE Prophylaxis will be ordered: Yes PG Care Time/CCT Total # of Minutes Spent Total Time Spent with Patient: Total time spent is greater than 50% in coordination of care (as documented) at patient's floor/unit and/or counseling patient: Coding Level of Care Code 40073 INT INP/OBS CARE 3/75MIN Diagnoses Pulmonary embolism I26.99 Orthostasis I95.1 Hypothyroidism E03.9 Unintentional weight loss R63.4
--- NOTE | 2024-04-03 14:20 | Electrocardiogram Report ---
Test Reason : Blood Pressure : */* mmHG Vent. Rate : 98 BPM Atrial Rate : 98 BPM P-R Int : 154 ms QRS Dur : 74 ms QT Int : 340 ms P-R-T Axes : 75 -31 55 degrees QTcB Int : 434 ms Sinus rhythm with Premature atrial complexes Left axis deviation Poor R wave progression, consider anterior AK vs. lead placement vs. LVH Abnormal ECG No previous ECGs available Confirmed by Alec Angel ([id number]) on 04/03/2024 2:19:54 PM Referred By: REFERRED SELF Confirmed By: Alec Angel
[2024-04-03 15:32] LABS: INR 1.1 (0.9-1.1); Partial Thromboplastin Time 26 Seconds (21-31); Prothrombin Time 11.5 Seconds (9.0-12.0)
[2024-04-03 16:19] LABS: Appearance Urine Cloudy (Clear); Bacteria Urine Automated None Seen (None Seen); Bilirubin Urine Negative (Negative); Blood Urine 2+ (Negative); Calcium Oxalate Crystals Urine Present (None Prsent); Color Urine Yellow; Epithelial Cell Urine Auto 0-2 /hpf (0-2); Glucose Urine UA Negative (Negative); Hyaline Casts Urine Present /lpf (None Presnt); Ketones Urine Trace (Negative); Leukocyte Esterase Urine 1+ (Negative); Nitrite Urine Negative (Negative); Protein Urine 2+ (Negative); RBC Urine Automated >20 /hpf (0-2); Specific Gravity Urine > 1.045 (1.000-1.030); Urobilinogen Urine Negative (Negative); WBC Urine Automated >50 /hpf (0-5)
[2024-04-03] MEDS ORDERED: ACETAMINOPHEN 325 MG TAB PO PRN (16:33)
--- NOTE | 2024-04-03 17:45 | Ultrasound Report ---
US venous doppler LE BI CLINICAL HISTORY: PE ?DVT TECHNIQUE: Bilateral lower extremity real-time compression venous ultrasound with Color Doppler imagi ng. Utilizing real-time ultrasonic imaging multiple real time high-resolution ultrasonic images with compression and noncompression maneuvers of the deep venous system in addition to color doppler imagi ng were performed from the common femoral vein through the proximal calf veins. COMPARISON: None available at the time of this dictation. FINDINGS/IMPRESSION: No deep venous thrombus, there is normal compressibility of the deep venous system from the common fe moral vein through the proximal calf veins. No superficial venous thrombosis is identified. ACT 112: Negative or not required by law. Electronically signed by: Carter No M.D. 04/03/2024 5:43 PM
[2024-04-03] MEDS: busPIRone 5 MG TAB PO SCH (21:13)
[2024-04-03] MEDS: LORazepam 0.5 MG TAB PO PRN (21:13)
--- OUTSIDE RECORDS SUMMARY | 2024-04-03 22:43 | External Medical Summary | Continuity of Care Document ---
Author Name Unknown Organization [address] Address [address] [place] [address] [phone] Care Team Providers Care Career Development Associate Name Role Phone Avery Villarreal Primary Care Physician [phone] Encounter [facility] [id number] Date(s): 12/13/23 - 12/13/[address] [facility] [address], [address] [place] [address] [phone] Encounter Diagnosis Body mass index [BMI] 20.0-20.9, adult(Discharge Diagnosis) - 12/13/23 Back pain(Discharge Diagnosis) - 12/13/23 Cerumen impaction(Discharge Diagnosis) - 12/13/23 Discharge Disposition: Home or Self Care Attending Physician: MD Villarreal Michael P Referring Physician: MD Villarreal Michael P Allergies, Adverse Reactions, Alerts No Known Medication Allergies Substance Criticality Severity Reaction Reaction Severity Status Dust itchy eyes runny nose Active Pollen congestion Active Assessment and Plan Extracted from: Title:Office Visit Note Author:MD Cherelle, Barber karissa P Date:12/13/23 1.Back pain Suspect MSK in nature.Discussed conservative measures. Will begin taking ibuprofen 400 mg daily for10 to 14 days. In addition,recommended heatapplication to the affected area. Also discussed the possibility of massage to help with discomfort. Advised to reach out if does not improve or worsens. 2.Cerumen impaction In the right ear. Ear irrigation performed today. Follow-up as needed. I have spent 31 minutes in face to face interaction regarding review of ongoing medical conditions, discussion and counseling regarding diagnostic testing, discussion and counseling regarding treatment recommendations, discussion and counseling regarding management recommendations and non face to face time for chart review and documentation. Immunizations Given and Recorded Vaccine Date Status Refusal Reason SARS-CoV-2 mRNA (Pfizer 12+) bivalent 1 03/22/22 R ecorded SARS-CoV-2 (COVID-19) mRNA-1273 vaccine 2 10/28/21 Recorded SARS-CoV-2 (COVID-19) mRNA-1273 vaccine 3 04/22/21 Recorded SARS-CoV-2 (COVID-19) mRNA-1273 vaccine 4 08/20/20 Recorded SARS-CoV-2 (COVID-19) mRNA-1273 vaccine 5 07/23/20 Recorded pneumococcal 23-valent vaccine 6 09/23/21 Recorded pneumococcal 23-valent vaccine 7 03/10/04 Recorded tetanus/diphtheria/pertuss, acel (Tdap) 8 09/07/21 Recorded zoster vaccine, inactivated 9 03/05/19 Recorded zoster vaccine, inactivated 10 02/16/19 Recorded zoster vaccine, inactivated 11 11/29/18 Recorded zoster vaccine, inactivated 12 11/16/18 Recorded pneumococcal 13-valent vaccine 13 08/11/14 Recorde d 1Result Comment: 2022-07-20: Historical information-source unspecified 2Result Comment: 2022-07-20: Historical information-source unspecified 3Result Comment: 2022-07-20: Historical information-source unspecified 4Result Comment: 2022-07-20: Historical information-source unspecified 5Result Comment: 2022-07-20: Historical information-source unspecified 6Result Comment: 2022-07-20: Historical information-source unspecified 7Result Comment: 2022-07-20: Historical information-source unspecified 8Result Comment: 2022-07-20: Historical information-source unspecified 9Result Comment: 2022-07-20: Historical information-source unspecified 10Result Comment: 2022-07-20: Historical information-source unspecified 11Result Comment: 2022-07-20: Historical information-source unspecified 12Result Comment: 2022-07-20: Historical information-source unspecified 13Result Comment: 2022-07-20: Historical information-source unspecified Medications Allergy Relief Start: 05/18/23 1:34:00 PM EST, generic sudafed as needed Start Date: 05/18/23 Status: Ordered amLODIPine 2.5 mg oral tablet Start: 11/15/23 7:37:00 AM EDT, 1 tab, PO, Daily, Disp# 90 tab, Refills: 2, Pharmacy: [id number] Start Date: 11/15/23 Stop Date: 08/11/24 Status: Ordered BuSpar 10 mg oral tablet Start: 08/29/23 3:47:00 PM EDT, 1 tab, PO, bid, Disp# 60 tab, Refills: 3, Pharmacy: [id number] Start Date: 08/29/23 Stop Date: 12/27/23 Status: Ordered citalopram 20 mg oral tablet Start: 07/17/23 4:19:00 PM EST, See Instructions, Disp# 90 tab, Refills: 2, TAKE 1 TABLET BY MOUTH EVERY DAY, Pharmacy: [id number] Start Date: 07/17/23 Status: Ordered D3 Start: 02/15/23 11:37:00 AM EDT Start Date: 02/15/23 Status: Ordered Debrox 6.5% otic solution Start: 07/17/23 4:19:00 PM EST, 5 drop, both ears, bid, Disp# 30 mL, PRN: cerumen impaction, other Start Date: 07/17/23 Status: Ordered dicyclomine 10 mg oral capsule Start: 07/25/22 4:54:00 PM EST, 1 cap, PO, tid, PRN: abdominal bloating - gas pain Start Date: 07/25/22 Status: Ordered levothyroxine 75 mcg (0.075 mg) oral tablet Start: 09/10/23 3:52:00 PM EDT, 75 mcg =, PO, Daily, Disp# 90 tab, Refills: 2, Pharmacy: [id number] Start Date: 09/10/23 Stop Date: 06/06/24 Status: Ordered LORazepam 1 mg oral tablet Start: 11/28/23 4:21:00 PM EDT, 0.5 tab, PO, qhs, Disp# 15 tab, Refills: 0, half tab at hs for sleepas needed, Pharmacy: [id number] Start Date: 11/28/23 Stop Date: 12/28/23 Status: Ordered metoprolol succinate 25 mg oral tablet, extended release Start: 02/15/23 4:58:00 PM EDT, 1 tab, PO, Daily, Disp# 90 tab, Refills: 2, do not crush or chew, Pharmacy: [id number] Start Date: 02/15/23 Stop Date: 11/12/23 Status: Ordered Ocuvite Adult 50+ oral capsule Start: 07/20/22 3:58:00 PM EST, 1, PO, Daily Start Date: 07/20/22 Status: Ordered raloxifene 60 mg oral tablet Start: 07/20/22 3:52:00 PM EST, 1 tab, PO, Daily Start Date: 07/20/22 Status: Ordered Vitamin B12 Start: 02/15/23 11:37:00 AM EDT Start Date: 02/15/23 Status: Ordered Mental Status 12/13/23 Barriers to Learning one year None evide nt Mandatory Health Literacy Documentation Yes Health Literacy Communication Barriers N ever Primary Language Polish Problem List Condition Confirmation Course Effective Dates Status Health St atus Informant Anxiety disorder Confirmed Active Hypertension Confirmed Active Hypothyroidism Confirmed Active Diagnosis Diagnosis Type Effective Dates Health Status Cl inical Service Informant Back pain Discharge Diagnosis 12/13/23 Non-Specified Cerumen impaction Discharge Diagnosis 12/13/23 Non-Specified Body mass index [BMI] 20.0-20.9, adult Discharge Diagnosis 12/13/23 Non-Specified Vital Signs Most recent to oldest [Reference Range]: 1 Height 155.2 cm (12/13/23 10:47 AM) Patient Weight 49.1 kg (12/13/23 10:47 AM) Body Mass Index 20.38 kg/m2 (12/13/23 10:47 AM) Temperature [36.5-37.9 DegC] 37.0 DegC (12/13/23 10:47 AM) Heart Rate 66 bpm (12/13/23 10:47 AM) Respiratory Rate 16 br/min (12/13/23 10:47 AM) Blood Pressure 122/60mmHg (12/13/23 10:47 AM) Cuff Pulse Pressure 62 mmHg (12/13/23 10:47 AM) Social History Social History Type Response Smoking Status Never smoked cigaret petrona Sex Female Medicine Outpt Note * MD Cherelle, Avery Joyce: PERFORM Event Display: Medicine Outpt Note Authored Date: [id number] Chief Complaint 3 month follow- back pain History of Present Illness Lisa Fields is an 83 year old female who presents for follow up ofher chronic medical conditions. She established care with me on 07/20/22. Reports ongoing back pain that began starting a few weeks ago. Notices that it has been about the same. She did take an NSIAd She overall has been doing well. She did recentlyget [facility]. She is using dicyclomine as neededfor abdominal discomfort. In addition, she has been noticing right ear mufflingwith buildup of earwax. She has tried Debrox dropsintermittently without si gnificant improvement. She is interested inirrigation today. In regards to her Sjogren's, she is scheduled to see [facility]ology next week. Problem List: #Hypothyroidism:Longstanding,due to Moriah's thyroiditis,managed withlevothyroxine 75 mcg daily #Anxiety disorder: Longstanding, currently managed withcitalopram 20 mg daily +buspirone5 mg twice daily + lorazepam 0.5mg QHS PRN for anxiety; considering telehealth counseling through insurance companies #Hypertension: Longstanding, currently managed withamlodipine2.5 mg daily +metoprolol 25 mg daily #Insomnia: currently taking lorazepam 0.5 mg nightly as needed for sleep #Neuropathy: Reportedly taking gabapentin but not on previous medication last; reports related to her Sjogren's syndrome #Hypothyroidism: currently managed with levothyroxine 75 mcg tablet x8nxvil; last TSH wnl (08/03/21) #Osteoporosis:Currently managed withraloxifene 60 mg daily; DEXA(09/13/2021):T score-2.2at the left hip; recommendation to repeat in 2 years #?Hx Diverticulosis (from last colonoscopy) #Sjogren's Syndrome: diagnosed in the Review of Systems As per HPI Physical Exam Vitals & Measurements T:37.0C HR:66(Monitored) RR:16 BP:122/60 SpO2:95% HT:155.2cm WT:49.1kg WT:49.100kg(Dosing) BMI:20.38 PHQ2 Data(Data Documented on:12/13/2023 10:47) Emotional health assessment NEGATIVE General: No Acute Distress. Speaking comfortably. Does not appear anxious. Neurologic: Alert and Oriented x 3, able to interact. Psychiatric: Pleasant, normal affect. Respiratory: Good inspiratory effort, no use of accessory muscles. No increased work of breathing. Able to complete full sentences. HEENT: Bulbar conjunctivae clear. No discharge from eyes. No nasal discharge. Lips not swollen.No visible neck masses. Cerumen impaction in the right ear; TM normal on the left and no cerumen noted MSK: tenderness to palpation on the left lower paraspinous muscles; no spinous process tenderness; no radiation; no other joint tenderness Skin: No rash on visible, exposed areas. Assessment/Plan 1.Back pain Suspect MSK in nature.Discussed conservative measures. Will begin taking ibuprofen 400 mg daily for10 to 14 days. In addition,recommended heatapplication to the affected area. Also discussed the possibility of massage to help with discomfort. Advised to reach out if does not improve or worsens. 2.Cerumen impaction In the right ear. Ear irrigation performed today. Follow-up as needed. I have spent 31 minutes in face to face interaction regarding review of ongoing medical conditions,discussion and counseling regarding diagnostic testing, discussion and counseling regarding treatment recommendations, discussion and counseling regarding management recommendations and non face to face time for chart review and documentation. Problem List/Past Medical History Ongoing Anxiety disorder Hypertension Hypothyroidism Medications amLODIPine(amLODIPine 2.5 mg oral tablet), 2.5 mg= 1 tab, PO, Daily, 2 refills busPIRone(BuSpar 10 mg oral tablet), 10 mg= 1 tab, PO, bid, 3 refills carbamide peroxide otic(Debrox 6.5% otic solution), 5 drop, both ears, bid, PRN cholecalciferol(D3) citalopram(citalopram 20 mg oral tablet), See Instructions cyanocobalamin(Vitamin B12) dicyclomine(dicyclomine 10 mg oral capsule), 10 mg= 1 cap, PO, tid, PRN levothyroxine(levothyroxine 75 mcg (0.075 mg) oral tablet), 75 mcg, PO, Daily, 2 refills loratadine(Allergy Relief) LORazepam(LORazepam 1 mg oral tablet), 0.5 mg= 0.5 tab, PO, qhs metoprolol(metoprolol succinate 25 mg oral tablet, extended release), 25 mg= 1 tab, PO, Daily, 2 refills multivitamin with minerals(Ocuvite Adult 50+ oral capsule), 1, PO, Daily raloxifene(raloxifene 60 mg oral tablet), 60 mg= 1 tab, PO, Daily Allergies Dustitchy eyes, runny nose No Known Medication Allergies Pollencongestion Social History Smoking Status Never smoked cigarettes Family History Atrial fibrillation: Brother. Breast cancer: Mother. Heart attack: Father. Hypertension: Brother and Brother. Lupus: Daughter. Parkinson disease: Brother. Sjogren's syndrome: Negative: Mother, Father, Sister, Brother, Brother, Daughter and Son. Health Status Family Member(s) Immunizations Vaccine Date Status SARS-CoV-2 mRNA (Pfizer 12+) bivalent 03/22/2022 Recorded Comments : 2022-07-20: Historical information-source unspecified SARS-CoV-2 (COVID-19) mRNA-1273 vaccine 10/28/2021 Recorded Comments : 2022-07-20: Historical information-source unspecified pneumococcal 23-valent vaccine 09/23/2021 Recorded Comments : 2022-07-20: Historical information-source unspecified tetanus/diphtheria/pertuss, acel (Tdap) 09/07/2021 Recorded Comments : 2022-07-20: Historical information-source unspecified SARS-CoV-2 (COVID-19) mRNA-1273 vaccine 04/22/2021 Recorded Comments : 2022-07-20: Historical information-source unspecified SARS-CoV-2 (COVID-19) mRNA-1273 vaccine 08/20/2020 Recorded Comments : 2022-07-20: Historical information-source unspecified SARS-CoV-2 (COVID-19) mRNA-1273 vaccine 07/23/2020 Recorded Comments : 2022-07-20: Historical information-source unspecified zoster vaccine, inactivated 03/05/2019 Recorded Comments : 2022-07-20: Historical information-source unspecified zoster vaccine, inactivated 02/16/2019 Recorded Comments : 2022-07-20: Historical information-source unspecified zoster vaccine, inactivated 11/29/2018 Recorded Comments : 2022-07-20: Historical information-source unspecified zoster vaccine, inactivated 11/16/2018 Recorded Comments : 2022-07-20: Historical information-source unspecified pneumococcal 13-valent vaccine 08/11/2014 Recorded Comments : 2022-07-20: Historical information-source unspecified pneumococcal 23-valent vaccine 03/10/2004 Recorded Comments : 2022-07-20: Historical information-source unspecified Recommendations Health Maintenance Pending(in the next year) OverDue Adult Influenza Vaccine due12/15/22and every 1year Due Adult Social Determinants of Health Screening due12/13/23Unknown Frequency Lipid Screening due12/13/23Unknown Frequency Medicare Annual Wellness Visit due12/13/23and every 1year Shingles Vaccine due12/13/23One-time only Satisfied(in the past 1 year) Satisfied Body Mass Index on12/13/23.Satisfied by SUKHI Lancaster Angela Electronic Signature on File Electronically Reviewed/Signed by: Avery Villarreal MD Author Signature Dt/Tm:12/13/2023 11:24 AM Division of Internal Medicine MPM Patient Care team information Care Team Personnel Name: MD Cherelle, Avery Joyce Position: Physician - Internal Med Member Role: Primary Care Provider Address: Address: [address] [place] [address]
--- OUTSIDE RECORDS SUMMARY | 2024-04-03 22:43 | External Medical Summary | Continuity of Care Document ---
Author Name Unknown Organization [address] Address [address] [place] [address] [phone] Care Team Providers Care Basket Sorter Name Role Phone Avery Villarreal Primary Care Physician [phone] Encounter [facility] [id number] Date(s): 10/04/23 - 10/04/[address] [facility] [address] [facility], [facility] [address] [place] [address] [place] [phone] Encounter Diagnosis Hypertension(Discharge Diagnosis) - 10/04/23 Hypothyroidism(Discharge Diagnosis) - 10/04/23 Cerumen impaction(Discharge Diagnosis) - 10/04/23 Discharge Disposition: Home or Self Care Attending Physician: MD Villarreal Michael P Referring Physician: MD Villarreal Michael P Allergies, Adverse Reactions, Alerts No Known Medication Allergies Substance Reaction Severity Status Dust itchy eyes runny nose Active Assessment and Plan Extracted from: Title:Office Visit Note Author:MD Cherelle, Barber hancock P Date:10/04/23 1.Hypertension Stable and well controlled. Goal BP<130/80. Continue with amlodipine2.5 mg daily +metoprolol 25 mg daily. Check CMP today for monitoring. 2.Hypothyroidism Suspect stable. We will plan to obtain TSH today. Continue withlevothyroxine 75 mcg daily. 3.Cerumen impaction Primarily of right ear. Irrigated today with improvement. Can continue with debrox drops PRN. I have spent 34minutes in face to face interaction regarding review of ongoing medical conditions, discussion and counseling regarding diagnostic testing, discussion and counseling regarding treatment recommendations, discussion and counseling regarding management recommendations and non face to face time for chart review and documentation. Immunizations Given and Recorded Vaccine Date Status Refusal Reason SARS-CoV-2 mRNA ([employer] ) bivalent 1 03/22/22 R ecorded SARS-CoV-2 (COVID-19) [...] information-source unspecified Medications Allergy Relief Start: 05/18/23 13:34:00 EST, generic sudafed as needed Start Date: 05/18/23 Status: Ordered amLODIPine 2.5 mg oral tablet Start: 02/15/23 16:14:00 EDT, 1 tab, PO, Daily, Disp# 90 tab, Refills: 2, Pharmacy: [id number] Start Date: 02/15/23 Stop Date: 11/12/23 Status: Ordered BuSpar 10 mg oral tablet Start: 08/29/23 15:47:00 EDT, 1 tab, PO, bid, Disp# 60 tab, Refills: 3, Pharmacy: [id number] Start Date: 08/29/23 Stop Date: 12/27/23 Status: Ordered citalopram 20 mg oral tablet Start: 07/17/23 16:19:00 EST, See Instructions, Disp# 90 tab, Refills: 2, TAKE 1 TABLET BY MOUTH EVERY DAY, Pharmacy: [id number] Start Date: 07/17/23 Status: Ordered D3 Start: 02/15/23 11:37:00 EDT Start Date: 02/15/23 Status: Ordered Debrox 6.5% otic solution Start: 07/17/23 16:19:00 EST, 5 drop, both ears, bid, Disp# 30 mL, PRN: cerumen impaction, other Start Date: 07/17/23 Status: Ordered dicyclomine 10 mg oral capsule Start: 07/25/22 16:54:00 EST, 1 cap, PO, tid, PRN: abdominal bloating - gas pain Start Date: 07/25/22 Status: Ordered levothyroxine 75 mcg (0.075 mg) oral tablet Start: 09/10/23 15:52:00 EDT, 75 mcg =, PO, Daily, Disp# 90 tab, Refills: 2, Pharmacy: [id number] Start Date: 09/10/23 Stop Date: 06/06/24 Status: Ordered LORazepam 1 mg oral tablet Start: 09/27/23 11:02:00 EDT, 0.5 tab, PO, qhs, Disp# 15 tab, Refills: 0, half tab at hs for sleep as needed, Pharmacy: [id number] Start Date: 09/27/23 Stop Date: 10/27/23 Status: Ordered metoprolol succinate 25 mg oral tablet, extended release Start: 02/15/23 16:58:00 EDT, 1 tab, PO, Daily, Disp# 90 tab, Refills: 2, do not crush or chew, Pharmacy: [id number] Start Date: 02/15/23 Stop Date: 11/12/23 Status: Ordered Ocuvite Adult 50+ oral capsule Start: 07/20/22 15:58:00 EST, 1, PO, Daily Start Date: 07/20/22 Status: Ordered raloxifene 60 mg oral tablet Start: 07/20/22 15:52:00 EST, 1 tab, PO, Daily Start Date: 07/20/22 Status: Ordered Vitamin B12 Start: 02/15/23 11:37:00 EDT Start Date: 02/15/23 Status: Ordered Mental Status 10/04/23 Barriers to Learning one year None evide nt Mandatory Health Literacy Documentation Yes Health Literacy Communication Barriers N ever Primary Language Indonesian Problem List Condition Confirmation Course Effective Dates Status Health St atus Informant Anxiety disorder Confirmed Active Hypertension Confirmed Active Hypothyroidism Confirmed Active Diagnosis Diagnosis Type Effective Dates Health Status Clinical Service Informant Hypertension Discharge Diagnosis 10/04/23 Hypothyroidism Discharge Diagnosis 10/04/23 Cerumen impaction Discharge Diagnosis 10/04/23 Vital Signs Most recent to oldest [Reference Range]: 1 Patient Weight 51.2 kg (10/04/23 11:29 AM) Temperature [36.5-37.9 DegC] 37.3 DegC (10/04/23 11:29 AM) Blood Pressure 130/80mmHg (10/04/23 11:29 AM) Social History Social History Type Response Smoking Status Never smoked cigaret petrona Sex Female Medicine Outpt Note * MD Cherelle, Avery P: PERFORM Event Display: Medicine Outpt Note Authored Date: Chief Complaint 3 month f/u. Feels like may be clogged up. right ear. History of Present Illness Lisa Fields is an 83 year old female who presents for follow up ofher chronic medical conditions. She established care with me on 07/20/22. She overall has been doing well. [facility] She is using dicyclomine as neededfor abdominal discomfort. In addition, she has been noticing right ear mufflingwith buildup of earwax. She has tried Debrox dropsintermittently without si gnificant improvement. She is interested inirrigation today. In regards to her Sjogren's, she is scheduled to see [facility] next week. Problem List: #Hypothyroidism:Longstanding,due to [...] currently managed with levothyroxine 75 mcg tablet [id number]; last TSH wnl (08/03/21) #Osteoporosis:Currently managed withraloxifene 60 mg daily; DEXA(09/13/2021):T score-2.2at the left hip; recommendation to repeat in 2 years #?Hx Diverticulosis (from last colonoscopy) #Sjogren's Syndrome: diagnosed in the Review of Systems As per HPI Physical Exam Vitals & Measurements T:37.3C BP:130/80 SpO2:99% WT:51.200kg(Dosing) WT:51.2kg PHQ2 Data(Data Documented on:10/04/2023 11:25) Emotional health assessment NEGATIVE General: No Acute Distress. Speaking comfortably. Does not appear anxious. Neurologic: Alert and Oriented x 3, able to interact. Psychiatric: Pleasant, normal affect. Respiratory: Good inspiratory effort, no use of accessory muscles. No increased work of breathing. Able to complete full sentences. HEENT: Bulbar conjunctivae clear. No discharge from eyes. No nasal discharge. Lips not swollen.No visible neck masses. Skin: No rash on visible, exposed areas. Assessment/Plan 1.Hypertension Stable and well controlled. Goal BP<130/80. Continue with amlodipine2.5 mg daily +[id number] mg daily. Check CMP today for monitoring. 2.Hypothyroidism Suspect stable. We will plan to obtain TSH today. Continue withlevothyroxine 75 mcg daily. 3.Cerumen impaction Primarily of right ear. Irrigated today with improvement. Can continue with debrox drops PRN. I have spent 34minutes in face to face interaction regarding review [...] eyes, runny nose No Known Medication Allergies Social History Smoking Status Never smoked cigarettes [...] Due Adult Social Determinants of Health Screening due10/04/23Unknown Frequency Lipid Screening due10/04/23Unknown Frequency Medicare Annual Wellness Visit due10/04/23and every 1year Shingles Vaccine due10/04/23One-time only Satisfied(in the past 1 year) Satisfied Body Mass Index on05/18/23.Satisfied by SUKHI Lancaster Angela Electronic Signature on File Electronically Reviewed/Signed by: Avery Villarreal MD Author Signature Dt/Tm:10/04/2023 12:23 PM Division of Internal Medicine MPM Patient Care team information Care Team Personnel Name: MD Cherelle, Avery Joyce Position: Physician - Internal Med Member Role: Primary Care Provider Address: Address: [address] [place] [address]
[2024-04-04 04:51] LABS: ANTI-Xa, UFH(UnfractionatedHep 0.19 IU/ml (0.3-0.7)
[2024-04-04] MEDS: LEVOTHYROXINE SODIUM 50 MCG TABLET PO SCH (05:11)
[2024-04-04] MEDS: HEPARIN SOD (PORCINE) 1000 UNIT/ML IV ONE (05:31)
--- NOTE | 2024-04-04 06:59 | Hospitalist Progress Note ---
Date of Service April 04, 2024 Assessment & Plan (1) Pulmonary embolism: Plan: #Pulmonary embolism -CTA demonstrated several small subsegmental pulmonary emboli within the right lung -IV heparin bolus and drip -Plan is to d/c patient on Eliquis x 3 months -Follow-up with PCP outpatient #Orthostasis -Secondary to anti-hypertensives in setting of pulmonary embolism -Stop all anti-hypertensives, given weight loss possibly even without PEs she no longer needs these -Monitor for improvement #Hypothyroidism -TSH low, free T4 high -Suspect over treatment of hypothyroidism in setting of weight loss -Reduce levothyroxine to 50 mcg PO daily and follow up as outpatient #Unintentional weight loss -Given pulmonary embolism and unintentional weight loss will get CT A/P with IV and oral contrast to assess for metastatic disease #Anxiety -continue buspirone and citalopram VTE Prophylaxis - IV heparin Diet - gluten free Disposition - observation to med/tele (2 midnight stay) (2) Orthostasis: (3) Hypothyroidism: (4) Unintentional weight loss: Admission and Anticipated Discharge Date Admission Date: April 03, 2024 Subjective 83 yo F presents for lightheadedness, weakness, and SOB. She is unclear on timeline but feels it has been much worse over the last 2 days, possibly intermittent for the last month with presyncope on standing up with associated palpitations (heart pounding).No syncopal events.Overall she just doesn't feel well.No chest pain, claudication. No fever, chills, headache, unilateral weakness, respiratory, gastrointestinal or urinary symptoms. She also notes 20lb unintentional weight loss. She states that this started several years ago and saw her previous PCP who was not concerned. Gained some b ack. She denies decreased appetite, odynophagia or dysphagia. She is resting comfortably this AM. No overnight events. No current SOB or CP. Review of Systems Review of Systems: Constitutional: No fever, No chills, No fatigue. Respiratory: No shortness of breath, No cough, No wheezing. Cardiovascular: No lightheadedness/presyncope, No palpitations, No chest pain. Gastrointestinal: No nausea, No vomiting, No diarrhea, No constipation, No heartburn, No abdominal pain. Musculoskeletal: No back pain, No neck pain, No joint pain, No muscle pain, No decreased range of motion, No trauma. Skin: No rash, No pruritus, No breakdown. Neurologic: No abnormal balance, No numbness, No tingling, No headache. Physical Exam Physical Exam: General: Alert and oriented, No acute distress HEENT: Normocephalic, TM clear, Nl gross hearing, moist oral mucosa Cardiovascular: Normal rate, Regular rhythm, No murmur, No gallop. Radial pulses are strong and equal bilaterally. Respiratory: Lungs are clear to auscultation, Respirations are non-labored, Breath sounds are equal Musculoskeletal: Normal range of motion, normal strength. Neurologic: Normal sensory, Normal motor function, CN II-XII grossly intact. Integumentary: Warm, Dry, [place]. Psych: Mood-affect congruence. Reports no SI/HI. Speech is of normal pace and content Results & Data Results & Data Vital Signs (Past 12 Hours) Vital Signs Temp Pulse Pulse Resp BP Pulse Ox O2 Del Method 04/04/24 04:41 36.9 C 73 20 122/74 94 Room Air 04/04/24 00:11 93 H 04/04/24 00:00 36.4 C L 91 H 20 114/75 95 Room Air 04/03/24 20:02 37.1 C 89 20 119/63 94 Room Air (1) Pulmonary embolism Acute cor pulmonale presence: unspecified Chronicity: unspecified Pulmonary embolism type: unspecified Qualified Code(s): I26.99 - Other pulmonary embolism without acute cor pulmonale (3) Hypothyroidism Hypothyroidism type: other Qualified Code(s): E03.8 - Other specified hypothyroidism
[2024-04-04 07:45] VITALS: TEMP 98.1
[2024-04-04 08:09] LABS: Basophils # (auto) 0.04 K/uL (0.00-0.20); Basophils % (auto) 0.6 %; Eosinophils # (auto) 0.09 K/uL (0.00-0.50); Eosinophils % (auto) 1.4 %; Hematocrit (blood only) 34.2 % (37.0-47.0); Hemoglobin 11.5 g/dl (12.0-16.0); Immature Granulocytes # (auto) 0.03 K/uL (0.01-0.20); Immature Granulocytes % (auto) 0.5 %; Lymphocytes # (auto) 1.86 K/uL (1.20-3.40); Lymphocytes % (auto) 28.7 %; Mean Corpuscular Hemoglobin 32.2 pg (25.0-34.0); Mean Corpuscular Hgb Conc 33.6 g/dL (32.0-36.0); Mean Corpuscular Volume 95.8 fL (80.0-100.0); Mean Platelet Volume 11.8 fL (9.4-12.4); Monocytes # (auto) 0.67 K/uL (0.11-0.59); Monocytes % (auto) 10.3 %; Neutrophils % (auto) 58.5 %; Platelet Count 181 K/uL (130-400); RDW Coefficient of Variation 13.3 % (11.5-14.5); RDW Standard Deviation 47.4 fL (36.4-46.3); Red Blood Count 3.57 M/uL (4.20-5.40); White Blood Count 6.49 K/ul (4.8-10.8)
[2024-04-04] MEDS: OPTIRAY 320 100ml IV ONE (08:20)
[2024-04-04 08:21] LABS: BUN Creatinine Ratio 26.5 (10-20); Calcium 9.1 mg/dl (8.6-10.3); Creatinine Clr Calc Pharmacy 33.8 ml/min; Potassium 3.9 mmol/L (3.5-5.1)
[2024-04-04] MEDS: CYANOCOBALAMIN (B-12) 500 MCG TABLET PO SCH (08:47)
[2024-04-04] MEDS: CITALOPRAM 20 MG TAB PO SCH (08:47)
--- NOTE | 2024-04-04 08:53 | CT Scan Report ---
CT abdomen oral and IV con HISTORY: 83 years-old Female unintentional weight loss, pulmonary emboli ?mets acute shortness breat h with weight loss COMPARISON: CT chest 04/03/2024 TECHNIQUE: CT abdomen with IV and oral contrast was obtained. A dose lowering technique was used cons istent with the principals marialuisa [place]. FINDINGS: Pulmonary nodules are redemonstrated measuring up to 5 mm, better discussed on the comparison chest C T. Bibasilar atelectasis versus scarring. Trace left pleural effusion. Mild cardiomegaly with coronar y arterial calcifications. There is no free air. Unremarkable spleen, pancreas and adrenal glands. Th ere is mild distention of the gallbladder with cholelithiasis. Heterogeneity of the liver. 4 mm hypod ense focus in the posterior right hepatic lobe is too small to characterize. The portal vein appears patent. Collateral vessels are noted within the daysi hepatis Nonobstructing calculi in the bilateral kidneys measuring up to approximately 5 mm bilaterally. There are 2 large calculi within the left renal pelvis measuring up to 10 mm. There is mild left-sided hyd ronephrosis with urothelial thickening. No right-sided hydronephrosis. Atherosclerosis. No definite l ymphadenopathy. Tortuosity of the abdominal aorta with atherosclerosis. Retroaortic left renal vein. Colonic diverticulosis. No bowel obstruction or bowel wall thickening identified. Scoliosis of the sp ine. No acute fracture or destructive bone lesion. IMPRESSION: 1. Calculi within the left renal pelvis measure up to 10 mm resulting in mild left-sided hydronephros is. Additional nonobstructing bilateral renal calculi are present. 2. No bowel obstruction or pneumoperitoneum. 3. Trace left pleural effusion with bibasilar atelectasis versus scarring. Please refer to yesterday' s CTA of the chest for additional intrathoracic findings. 4. Cholelithiasis. ACT 112: Negative or not required by law. The above report was generated using voice recognition software. It may contain grammatical, syntax o r spelling errors. Electronically signed by: Austin Mayer M.D. 04/04/2024 8:52 AM
[2024-04-04 11:34] LABS: ANTI-Xa, UFH(UnfractionatedHep 0.45 IU/ml (0.3-0.7)
[2024-04-04 11:54] VITALS: BP 111/72; RESP 18; O2SAT 99
--- NOTE | 2024-04-04 12:54 | Discharge Summary ---
Date of Service April 04, 2024 Admission HPI Per Admitting Provider Lisa Sage is an 83 year old female who presents to the ER with with generalized weakness and lightheadedness. She is unclear on timeline but feels it has been much worse over the last 2 days, possibly intermittent for the last month with presyncope on standing up with associated palpitations (heart pounding). No syncopal events. Overall she just doesn't feel well. No shortness of breath, chest pain, claudication. No fever, chills, headache, unilateral weakness, respiratory, gastrointestinal or urinary symptoms. She also notes 20lb unintentional weight loss which she has not seen her PCP about and again is unclear over what time period. She denies decreased appetits, odynophagia or dysphagia. Admission Exam Per Admitting Provider Constitutional: well developed and + thin; no acute distress Eyes: PERRL, conjunctivae normal, anicteric sclerae ENMT: Mouth: + dry oral mucous membranes Respiratory: normal respiratory effort, lungs clear to auscultation Cardiovascular: RRR, no murmur, no edema Gastrointestinal (Abdomen): normal bowel sounds, soft, nontender, no hepatosplenomegaly Musculoskeletal: no cyanosis or clubbing, extremities motor strength 5/5 Skin: no rashes, warm and dry Neurologic: moves all extremities and awake; not confused Psychiatric: A+Ox3, euthymic affect Genitourinary: no CVA tenderness Principal Diagnosis PE Discharge Exam Constitutional WD/WN, vitals as above Respiratory normal respiratory effort, lungs clear to auscultation Cardiovascular RRR, no murmur, no edema Skin no rashes, warm and dry Psychiatric A+Ox3, euthymic affect Discharge Data Allergies Allergy/AdvReac Type Severity Reaction Status Date / Time gluten AdvReac Unknown Verified 04/04/24 14:50 Consultations 04/03/24 13:57 ED Decision to Admit Stat Ordered Studies 04/03/24 12:21 CT angio chest PE protocol Stat 04/03/24 16:21 US venous doppler LE BI Stat 04/04/24 09:00 CT abdomen oral and IV con Routine Hospital Course (1) Pulmonary embolism: (2) Orthostasis: (3) Hypothyroidism: (4) Unintentional weight loss: Plan #Pulmonary embolism -CTA demonstrated several small subsegmental pulmonary emboli within the right lung -Bilateral LE venous doppler negative -CT A/P w/ oral and IV contrast without evidence of malignancy - at present, appears to be unprovoked PE -Pt was started on IV heparin drip, discharged on Eliquis - recommend minimum duration 3-6 months #Orthostasis -Orthostasis in the setting of relative hypotension, pt with soft BPs throughout hospital stay -Amlodipine held, recommend home BP monitoring, consider restarting as appropriate on outpatient follow up #Hypothyroidism -TSH 0.113, free T4 2.01 - suggestive of iatrogenic hyperthyroidism -levothyroxine decreased to 50 mcg PO daily, recommend repeating labs in 6-8 weeks with further titration as needed #Anxiety -continue buspirone and citalopram Total Time Total Time Spent Total Time Spent (In Minutes): see attending attestation Discharge Plan Discharge Items Patient Disposition: Personal Group Home Reason For Visit: PULMONARY EMBOLI Discharge Diagnosis: PE Activity: As commented below Activity Comment: activity progression as tolerated Non-emergency contact: Primary Care Provider Call non-emergency contact if: you have any medication questions and your symptoms worsen Follow-up/Referrals: Avery Villarreal MD [Primary Care Provider] - Diet: Gluten Free Addtl Attending Provider Instructions: You were admitted to the hospital due to pulmonary emboli (blood clots in the lungs). The standard of treatment for this condition is with blood thinners. You are being discharged on a blood thinner called Eliquis (Apixaban), which has been sent to your pharmacy. Please take 10mg (2 tabs) TWICE daily for the first 7 days, then switch to 5mg (1 tab) TWICE daily thereafter. It is generally recommended to continue anticoagulant therapy for minimum 3-6 months. Please follow up with your PCP to determine duration of treatment. Additionally, your blood pressure has been on the lower end of normal while in the hospital; because of this, your Amlodipine was held. We recommend holding this medication for the time being. Please monitor your blood pressure regularly at home and coordinate with your PCP to determine if/when to resume this medication. Unrelated to your blood clots, your lab work demonstrated an elevated T4 (thyroid hormone), which suggests that your Levothyroxine dose may have been too high. We recommend decreasing the dose of this medication from 75 micrograms daily to 50 micrograms daily. A new prescription for the 50 microgram dose has been sent to your pharmacy. Please follow up with your PCP for ongoing monitoring and adjustment as needed. Pending Studies at Discharge: No Stand-Alone Forms: My [place], Smoking Cessation Skilled Items Patient informed of condition?: Yes DNR: No Discharge Level of Care: Other Communicable Disease: No Discharge Prognosis: Improving Lines: None Urinary Catheter: No Medications and DC Order Prescriptions: New levothyroxine [Synthroid] 50 mcg Tablet 50 mcg PO DAILYBB 30 Days Qty: 30 0RF apixaban 5 mg tablet 5 mg PO .see instructions 30 Days Qty: 74 0RF Rx Instructions: Please take 10mg (2 tabs) twice daily for the first 7 days, then switch to 5mg (1 tab) twice daily thereafter. Continued cyanocobalamin (vitamin B-12) [Vitamin B-12] 1,000 mcg Tablet 1,000 mcg PO QAM citalopram 20 mg Tablet 20 mg PO QAM lorazepam 0.5 mg Tablet 0.5 mg PO HS PRN (Reason: Anxiety) metoprolol succinate 25 mg Tablet Extended Release 24 Hr 25 mg PO QAM buspirone 10 mg tablet 10 mg PO BID Held amlodipine 2.5 mg Tablet 2.5 mg PO QAM Hold Instructions: Resume on 04/25/24. Please monitor your blood pressure regularly following discharge and coordinate with your PCP to determine if/when to resume this medication. Discontinued levothyroxine 75 mcg Tablet 75 mcg PO QAM Discharge Orders: Discharge Order (Routine); Ordered 04/04/24 Ordered By: Maciej Alvares/Other Patient Handouts: Levothyroxine Oral Tablet, Apixaban Oral Tablet Admission Data Admit Date/Time: 04/03/24 14:08 Attending Provider: Marissa León Admit Provider: Melecio Ortiz Primary Care Provider: Avery Villarreal Other Providers: Melecio Ortiz Other Interventions: Discharge Summary Assessment (RN) Last Done: 04/04/24 14:13 Supervising Physician Co-Signing Physician Notes Attending Physician Supervision Note: I independently interviewed and examined the patient and verified the tucker history and physical, reviewed labs and image studies and agree with findings and care plan noted above. Resident Activity Tracking Resident Involvement: Resident Care Provided Care Provided: Adult Hospital Medicine
[2024-04-04 14:01] VITALS: PULSE 91
== END 2024-04-04 17:42 | disposition home or self-care (01) ==
LOC: 2N 09:51 → ED 09:51 → SUATTDRO 14:08 → 2N 18:08